=== PATIENT | male | born 1985 | race Caucasian/White ===

== ENCOUNTER 2023-02-05 19:48 | Emergency (ER) | payer MEDICAID ==
[~2023-02-05] VITALS: Ht 185.4 cm; Wt 88.5 kg
[2023-02-05] MEDS ORDERED: HYDROCODONE/APAP 5/325MG TABLET PO ONE (21:30)
[2023-02-05] MEDS ORDERED: HYDROCODONE/APAP 5/325MG TABLET ONE (21:37)
[2023-02-05] MEDS ORDERED: IBUP-1955 PO (23:22)
[2023-02-05 23:40] VITALS: BP 126/73; TEMP 98.1; O2SAT 99
== END 2023-02-05 23:41 | disposition home or self-care (01) ==
LOC: ER 19:52
DX: S93.602A Unspecified sprain of left foot, initial encounter (principal); S93.402A Sprain of unspecified ligament of left ankle, initial encounter; V23.49XA Other motorcycle driver injured in collision with car, pick-up truck or van in traffic accident, initial encounter; Y93.89 Activity, other specified; Y92.89 Other specified places as the place of occurrence of the external cause; Y99.8 Other external cause status
CPT/HCPCS: 73552; 73590-TC; 73610-TC; 73630-TC